=== PATIENT | female | born 1970 | race Caucasian/White ===

== ENCOUNTER 2017-11-04 21:15 | Inpatient (IN) | payer MEDICAID ==
[2017-11-04] MEDS: SOD CHLORIDE 0.9% 1,000 ML IV (22:23)
[2017-11-04 23:23] LABS: ADD MAN DIFF? NO
[2017-11-04 23:25] LABS: BASOPHIL # 0.1 10^3/ul (0.0-0.1); BASOPHILS % 0.5 % (0.0-2.0); EOSINOPHILS # 0.3 10^3/ul (0.0-0.5); EOSINOPHILS % 2.6 % (0.0-7.0); HEMATOCRIT 36.4 % (37.0-47.0); HEMOGLOBIN 12.2 g/dl (12.0-16.0); LYMPHOCYTES # 4.2 10^3/ul (0.8-2.9); LYMPHOCYTES % 32.4 % (15.0-51.0); MEAN CORPUSCULAR HEMOGLOBIN 31.3 pg (29.0-33.0); MEAN CORPUSCULAR HGB CONC 33.5 g/dl (32.0-37.0); MEAN CORPUSCULAR VOLUME 93.3 fl (82.0-101.0); MEAN PLATELET VOLUME 12.9 fl (7.4-10.4); MONOCYTE # 0.6 10^3/ul (0.3-0.9); MONOCYTES % 4.6 % (0.0-11.0); NEUTROPHIL # 7.7 10^3/ul (1.6-7.5); NEUTROPHILS % 59.4 % (39.0-77.0); PLATELET COUNT 203 10^3/UL (140-415); RED CELL DISTRIBUTION WIDTH 15.9 % (11.5-14.5)
[2017-11-04 23:25] LABS: WHITE BLOOD COUNT 12.9 10^3/ul (4.8-10.8)
[2017-11-04] MEDS: MECLIZINE 12.5 MG TAB PO (23:28)
[2017-11-04 23:43] LABS: ADD UMIC YES; ANION GAP 18 (8-16); BLOOD UREA NITROGEN 21 mg/dl (7-20); CALCIUM 9.8 mg/dl (8.4-10.2); CARBON DIOXIDE 29 mmol/L (21-31); CHLORIDE 102 mmol/L (97-110); CREATININE 1.24 mg/dl (0.44-1.00); GLUCOSE 106 mg/dl (70-220); POTASSIUM 3.7 mmol/L (3.5-5.1); SODIUM 145 mmol/L (135-144); UR ASCORBIC ACID NEGATIVE (NEGATIVE); UR BILIRUBIN (Dip) NEGATIVE (NEGATIVE); UR BLOOD (Dip) 2+ mg/dL (NEGATIVE); UR CLARITY SLIGHTLY CLOUDY (CLEAR); UR COLOR YELLOW (YELLOW); UR GLUCOSE (Dip) NEGATIVE (NEGATIVE); UR KETONES (Dip) NEGATIVE (NEGATIVE); UR LEUKOCYTE ESTERASE (Dip) TRACE Leu/ul (NEGATIVE); UR MUCUS FEW /HPF (NONE SEEN); UR NITRITE (Dip) NEGATIVE (NEGATIVE); UR RBC 9 /HPF (0-5); UR SPECIFIC GRAVITY (Dip) 1.018 (1.003-1.030); UR SQUAMOUS EPITHELIAL CELL FEW /HPF (FEW); UR TOTAL PROTEIN (Dip) 2+ mg/dl (NEGATIVE); UR UROBILINOGEN (Dip) NEGATIVE (NEGATIVE); UR WBC 15 /HPF (0-5)
[2017-11-05 00:06] LABS: FREE T4 (FREE THYROXINE) < 0.07 ng/dl (0.64-1.79)
[2017-11-05 00:06] LABS: TROPONIN-I < 0.012 ng/ml (0.00-0.12)
[2017-11-05] MEDS ORDERED: ACETAMINOPHEN 325 MG TAB PO (02:00)
[2017-11-05] MEDS ORDERED: ONDANSETRON 4 MG INJ IV ×2 (02:00→03:00)
[2017-11-05] MEDS ORDERED: ALBUTEROL/IPRATROPIUM (NEB) 3 ML AMP NEB (03:00)
[2017-11-05] MEDS ORDERED: NITROGLYCERIN (SL) 0.4 MG TAB SL (03:00)
[2017-11-05] MEDS ORDERED: morphine 2 MG INJ IV (03:00)
[2017-11-05] MEDS ORDERED: CEFTRIAXONE 1 GM/NS 50 ML IVPB (03:00)
[2017-11-05] MEDS: SOD CHLORIDE 0.9% 1,000 ML IV ×3 (03:01→15:14)
[2017-11-05] MEDS: CEFTRIAXONE 1 GM/50 ML (PMX) 50 ML IVPB ×3 (03:03→14:42)
[2017-11-05] MEDS: HYDROCORTISONE 100 MG INJ IV (03:03)
[2017-11-05] MEDS: LEVOTHYROXINE 100 MCG VIAL IV (03:54)
[2017-11-05 05:55] LABS: WHITE BLOOD COUNT 10.7 10^3/ul (4.8-10.8)
[2017-11-05 05:55] LABS: ADD MAN DIFF? NO; BASOPHIL # 0.1 10^3/ul (0.0-0.1); BASOPHILS % 0.5 % (0.0-2.0); EOSINOPHILS # 0.2 10^3/ul (0.0-0.5); EOSINOPHILS % 2.3 % (0.0-7.0); HEMATOCRIT 35.5 % (37.0-47.0); HEMOGLOBIN 11.7 g/dl (12.0-16.0); LYMPHOCYTES # 2.8 10^3/ul (0.8-2.9); LYMPHOCYTES % 26.3 % (15.0-51.0); MEAN CORPUSCULAR HEMOGLOBIN 31.2 pg (29.0-33.0); MEAN CORPUSCULAR VOLUME 94.7 fl (82.0-101.0); MEAN PLATELET VOLUME 12.4 fl (7.4-10.4); MONOCYTE # 0.3 10^3/ul (0.3-0.9); MONOCYTES % 2.6 % (0.0-11.0); NEUTROPHIL # 7.2 10^3/ul (1.6-7.5); NEUTROPHILS % 67.5 % (39.0-77.0); PLATELET COUNT 177 10^3/UL (140-415); RED BLOOD COUNT 3.75 10^6/ul (4.20-5.40); RED CELL DISTRIBUTION WIDTH 15.9 % (11.5-14.5)
[2017-11-05 06:39] LABS: ALANINE AMINOTRANSFERASE 23 IU/L (13-69); ALBUMIN 4.1 g/dl (3.3-4.9); ALKALINE PHOSPHATASE 74 IU/L (42-121); ANION GAP 16 (8-16); ASPARTATE AMINO TRANSFERASE 27 IU/L (15-46); BILIRUBIN,INDIRECT 0.1 mg/dl (0-1.1); BILIRUBIN,TOTAL 0.1 mg/dl (0.2-1.3); BLOOD UREA NITROGEN 18 mg/dl (7-20); CALCIUM 8.7 mg/dl (8.4-10.2); CARBON DIOXIDE 25 mmol/L (21-31); CHLORIDE 108 mmol/L (97-110); CREATININE 1.07 mg/dl (0.44-1.00); GLUCOSE 123 mg/dl (70-220); MAGNESIUM 2.2 mg/dl (1.7-2.5); POTASSIUM 3.7 mmol/L (3.5-5.1); SODIUM 145 mmol/L (135-144); TOTAL PROTEIN 7.5 g/dl (6.1-8.1)
[2017-11-05] MEDS: LEVOTHYROXINE 500 MCG VIAL IV (10:30)
[2017-11-05] MEDS: LEVOTHYROXINE 150 MCG TAB PO (11:34)
[2017-11-05] MEDS: LEVOTHYROXINE 200 MCG VIAL IV (11:36)
[2017-11-05] MEDS: ACETAMINOPHEN 650MG/20.3ML CUP PO (11:52)
[2017-11-06] MEDS: SOD CHLORIDE 0.9% 1,000 ML IV ×2 (01:21→11:01)
[2017-11-06] MEDS: CEFTRIAXONE 1 GM/50 ML (PMX) 50 ML IVPB (03:07)
[2017-11-06] MEDS: LEVOTHYROXINE 150 MCG TAB PO (05:59)
[2017-11-06 06:01] LABS: ADD MAN DIFF? NO
[2017-11-06 06:13] LABS: BASOPHIL # 0.1 10^3/ul (0.0-0.1); BASOPHILS % 0.6 % (0.0-2.0); EOSINOPHILS # 0.2 10^3/ul (0.0-0.5); HEMATOCRIT 35.2 % (37.0-47.0); HEMOGLOBIN 11.3 g/dl (12.0-16.0); LYMPHOCYTES # 3.7 10^3/ul (0.8-2.9); LYMPHOCYTES % 40.8 % (15.0-51.0); MEAN CORPUSCULAR HEMOGLOBIN 30.5 pg (29.0-33.0); MEAN CORPUSCULAR HGB CONC 32.1 g/dl (32.0-37.0); MEAN CORPUSCULAR VOLUME 95.1 fl (82.0-101.0); MEAN PLATELET VOLUME 12.8 fl (7.4-10.4); MONOCYTE # 0.4 10^3/ul (0.3-0.9); MONOCYTES % 4.3 % (0.0-11.0); NEUTROPHIL # 4.6 10^3/ul (1.6-7.5); NEUTROPHILS % 51.5 % (39.0-77.0); PLATELET COUNT 178 10^3/UL (140-415); RED CELL DISTRIBUTION WIDTH 16.1 % (11.5-14.5)
[2017-11-06 06:35] LABS: ANION GAP 16 (8-16); BLOOD UREA NITROGEN 12 mg/dl (7-20); CALCIUM 8.3 mg/dl (8.4-10.2); CARBON DIOXIDE 27 mmol/L (21-31); CHLORIDE 107 mmol/L (97-110); CREATININE 0.98 mg/dl (0.44-1.00); GLUCOSE 100 mg/dl (70-220); POTASSIUM 3.5 mmol/L (3.5-5.1); SODIUM 146 mmol/L (135-144)
[2017-11-06 06:57] LABS: PHOSPHORUS 3.4 mg/dl (2.5-4.9)
[2017-11-06 07:06] LABS: HEMOGLOBIN A1C 5.9 % (0-5.9)
[2017-11-06] MEDS: DOCUSATE SODIUM 100 MG CAP PO (22:00)
[2017-11-06] MEDS: POLYETHYLENE GLYCOL 17 GM PACKET PO (22:00)
[2017-11-07] MEDS: LEVOTHYROXINE 150 MCG TAB PO (05:42)
[2017-11-07] MEDS ORDERED: POLYETHYLENE GLYCOL 17 GM PACKET PO (09:00)
[2017-11-07] MEDS: DOCUSATE SODIUM 100 MG CAP PO (09:16)
[2017-11-07] MEDS: POLYETHYLENE GLYCOL 17 GM PACKET PO (09:16)
[2017-11-07] MEDS: ACETAMINOPHEN 650MG/20.3ML CUP PO (12:18)
== END 2017-11-07 14:55 | disposition home or self-care (01) | DRG 644 ==
LOC: E/R 21:15 → ICU 11-05 01:54 → MS2 11-05 15:32
DX: E03.9 Hypothyroidism, unspecified (principal); N39.0 Urinary tract infection, site not specified; Z68.41 Body mass index [BMI] 40.0-44.9, adult; N17.9 Acute kidney failure, unspecified; I10 Essential (primary) hypertension; E66.01 Morbid (severe) obesity due to excess calories; R42 Dizziness and giddiness; H93.19 Tinnitus, unspecified ear
CPT/HCPCS: 36415; 70450; 71045; 76536; 80048; 80053; 81001; 81025; 82962; 83036; 83735; 84100; 84439; 84443; 84484; 85025; 87040; 87086; 93005; 96365; 96366; 96375; 99291-25